=== PATIENT | male | born 1985 | race African-American/Black ===

== ENCOUNTER 2017-02-25 19:35 | Emergency (ER) | payer SELFPAY ==
[~2017-02-25] VITALS: Ht 167.6 cm; Wt 63.5 kg
[2017-02-25 19:42] VITALS: BP 120/80
[2017-02-25] MEDS ORDERED: LORazepam Inj 2mg/ml 1ml ONE (19:51)
--- NOTE | 2017-02-25 20:37 | Emergency Room Report ---
History of Present Illness General Chief Complaint: General Complaint Source: Patient (Kina Pulliam) Present Illness HPI 31 YO male presents to the ED brought by EMS and escorted by police for paranoia after eating two marijuana brownies. pt. denies additional drug use besides marijuana. pt. denies psychiatric hx. pt. denies SI/HI or hearing voices. pt .denies pmhx. Pt. denies medical complaints at this time. Denies CP, Palpitations, LOC, AMS, dizziness, Changes in Vision, Sensation, paresthesias, or a sudden severe headache. (Kina Pulliam) Allergies: Coded Allergies: No Known Allergies (Unverified , 02/25/17) Patient History Past Medical History: see triage record Past Surgical History: none Pertinent Family History: none Social History: Reports: drug use - THC Reviewed Nursing Documentation: PMH: Agreed, PSxH: Agreed (Kina Pulliam) Nursing Documentation-PMH Past Medical History: No Stated History (Kina Pulliam) Review of Systems All Other Systems: negative except mentioned in HPI (Kina Pulliam) Physical Exam Vital Signs Date Time Temp Pulse Resp B/P Pulse Ox O2 Delivery O2 Flow Rate FiO2 02/25/17 19:32 98.1 88 16 120/80 98 Room Air Sp02 EP Interpretation: reviewed, normal General Appearance: no apparent distress, alert, GCS 15, non-toxic Head: normocephalic, atraumatic Eyes: bilateral eye PERRL, bilateral eye normal inspection ENT: hearing grossly normal, normal pharynx, no angioedema, normal voice Neck: full range of motion, supple/symm/no masses Respiratory: chest non-tender, lungs clear, normal breath sounds, speaking full sentences Cardiovascular #1: regular rate, rhythm, no edema Gastrointestinal: normal bowel sounds, non tender, soft, no guarding, no rebound Rectal: deferred Musculoskeletal: back normal, gait/station normal, normal range of motion, non- tender Neurologic: alert, oriented x3, responsive, motor strength/tone normal, sensory intact, speech normal Psychiatric: judgement/insight normal, memory normal, mood/affect normal, no suicidal/homicidal ideation, anxious Skin: normal color, no rash, warm/dry, well hydrated (Kina Pulliam.) Medical Decision Making PA Attestation Dr. Ordaz is my supervising Physician whom patient management has been discussed with. (Kina Pulliam) Diagnostic Impression: Primary Impression: Intoxication with marijuana Qualified Codes: F12.920 - Cannabis use, unspecified with intoxication, uncomplicated ER Course 31 YO male presents to the ED brought by EMS and escorted by police for paranoia after eating two marijuana brownies. pt. denies additional drug use besides marijuana. pt. denies psychiatric hx. pt. denies SI/HI or hearing voices. pt .denies pmhx. Pt. denies medical complaints at this time. Denies CP, Palpitations, LOC, AMS, dizziness, Changes in Vision, Sensation, paresthesias, or a sudden severe headache. Pt is hyperactive, and has anxious and restless affect. Ddx considered but are not limited to OD, SI/HI, psychosis, UTI, intoxication Vital signs: are WNL, pt. is afebrile H&PE are most consistent with substance use. ORDERS: none required at this time. ED INTERVENTIONS: - Ativan 0.5mg PO -- Pt refused. DISPOSITION: Pt. requests to leave, d/w pt. that he needs to have a safe ride home, and that he may use the phone to try to contact someone to come get him. Pt signed out to Dr. Kevin for observation until either clinical sobriety or a safe ride home is established. (Kina Pulliam.[email or web address]) ER Course Endorsed to me by MIGUEL Pulliam at 9pm for re-eval Patient initially still intoxicated from marijuana edibles. Has receipt with him from [place] dispens[facility] Denies ETOH, other drugs Became more alert/sober after period of monitoring in the ED Is visiting from [place] he missed flight. Going to [place] now to try to catch another flight back home Denies SI, HI, AVH, psych history Patient is now Alert and oriented x3. Has capacity for appropriate decision making. DC (ANA KEVIN M.D.) Last Vital Signs Date Time Temp Pulse Resp B/P Pulse Ox O2 Delivery O2 Flow Rate FiO2 02/25/17 19:32 98.1 88 16 120/80 98 Room Air (Kina Pulliam.[email or web address]) Status: improved (ANA KEVIN M.D.) Disposition: HOME, SELF-CARE Signed Out To: Dr. Kevin (Kina Pulliam) Kina Pulliam Feb 25, 2017 20:37 ANA KEVIN M.D. Feb 26, 2017 00:56
[2017-02-25] MEDS ORDERED: LORazepam 0.5mg tab ORAL ONE (21:30)
[2017-02-25 22:00] VITALS: BP 127/76
[2017-02-26 00:15] VITALS: BP 135/83
[2017-02-26 00:35] VITALS: BP 135/83
== END 2017-02-26 00:35 | disposition home or self-care (01) ==
LOC: EDBD 19:35 → EMR 19:51
DX: F12.920 Cannabis use, unspecified with intoxication, uncomplicated (principal)
CPT/HCPCS: 99284